=== PATIENT | female | born 1960 | race Caucasian/White ===

== ENCOUNTER 2019-07-17 14:38 | Emergency (ER) | payer OTHER, SELFPAY ==
[2019-07-17 14:49] VITALS: BP 149/92; PULSE 65; RESP 16; TEMP 36.7; O2SAT 99
--- NOTE | 2019-07-17 15:22 | ED.GENADULT ---
HPI - General Adult General Chief complaint: Upper Respiratory Infection Stated complaint: cough/dizzy Time Seen by Provider: 07/17/19 15:22 Source: patient and RN notes reviewed Mode of arrival: ambulatory Limitations: no limitations History of Present Illness HPI narrative: 58-year-old female presents with complaints of dizziness that occurred this a.m. 7 hours ago. Olga said she was eased to the floor by coworkers. Denies losing consciousness or hitting head. Says she went home instead of seeking immediate medical treatment after episode. Denies dizziness at this time. No treatment. Exacerbating factors consist of changing position too fast turning head from side to side too fast. Relieving factors is sitting still. Denies ear pain, ear itching, ear trauma, trauma to head, syncopal episodes, altered vision, altered speech, confusion, or seizure activity. Denies headache, numbness or tingling in extremities. Denies chest pain or dyspnea. Denies URI symptoms, fever, or chills. Tolerating p.o. intake well. Remains active. Some parts of this dictation were generated by voice recognition software and may contain typographical and/or grammatical inaccuracies. Related Data Home Medications Medication Instructions Recorded Confirmed atorvastatin 07/17/19 carvedilol 07/17/19 clonidine HCl 07/17/19 ipratropium-albuterol ml INHALATION 07/17/19 lorazepam 07/17/19 nifedipine PO 07/17/19 paroxetine HCl mg PO 07/17/19 Allergies Allergy/AdvReac Type Severity Reaction Status Date / Time pseudoephedrine Allergy Mild Verified 09/04/15 10:03 Review of Systems Review of Systems: Narrative: CONSTITUTIONAL: Denies fever, chills, sweats. EYES: Denies visual changes, redness, discharge. ENT: Denies rhinorrhea, congestion, sore throat, otalgia. CARDIOVASCULAR: Denies chest pain, palpitations, edema. RESPIRATORY: Denies dyspnea, wheezing, cough. GASTROINTESTINAL: Denies abdominal pain, nausea, vomiting, diarrhea. GENITOURINARY: Denies dysuria, hematuria, abnormal discharge. SKIN: Denies lesions, itching, drainage. MUSCULOSKELETAL: Denies acute back pain, joint pain, or myalgia. NEUROLOGIC: Denies numbness or focal weakness. Complains of dizziness. PSYCHIATRIC: Denies anxiety or depression. All systems reviewed & are unremarkable except as noted in HPI and below. [facility] Past Medical History Medical History (Updated 07/18/19 @ 00:01 by Genaro Timmons) Aneurysm of abdominal aorta 01/14/2019 repaired Anxiety Hypercholesteremia Hypertension Surgical History Surgical History (Updated 07/17/19 @ 15:38 by TYRONE Liu) History of AAA (abdominal aortic aneurysm) repair Hx of appendectomy Family History Family History Mother Asthma Family history of heart disease in male family member before age 55, Onset Age: 66 Patient's mother is Father Family history of arthritis Social History Social History (Updated 07/17/19 @ 15:39 by TYRONE Liu) Smoking status: Light tobacco smoker Second hand tobacco smoke exposure: Yes Smoking end date: 05/08/14 Alcohol intake: never Substance use: never Living arrangements: with family Occupation/Education: occupation Gender identity (if verbalized by the patient): Female Comments At time of signature, agree with nurse past medical, surgical, social, and family history. There is no relevant family history pertinent to the presenting complaint. Exam Narrative: Exam Narrative: GENERAL: This is a well-nourished, well-developed patient, in no apparent distress. Talks in full sentences and ambulates with steady gait without dyspnea. HEAD: normocephalic, atraumatic. EYES: PERRL. Sclera clear/white. Vision is grossly intact. EARS: External ears normal, auditory canals clear and without drainage, TMs normal without perforation. Hearing grossly intact. NOSE:
[2019-07-17 15:31] VITALS: BP 170/91; PULSE 55
--- NOTE | 2019-07-17 15:32 | ECG_ITS ---
Measurements Intervals [place] Rate: 59 P: 74 MS: 223 QRS: -31 QRSD: 89 T: 75 QT: 458 QTc: 454 Interpretive Statements SINUS BRADYCARDIA WITH FIRST DEGREE AV BLOCK LEFT ATRIAL ENLARGEMENT LEFT AXIS DEVIATION CANNOT RULE OUT SEPTAL INFARCT, AGE INDETERMINATE BORDERLINE ST-T WAVE ABNORMALITY- LATERAL LEADS ABNORMAL ECG Electronically Signed On 07-18-2019 13:36:05 CDT by Javon Riggins D.O.
[2019-07-17 15:47] LABS: Glucose Point of Care 81 (65-105)
[2019-07-17 15:48] VITALS: BP 151/91; BP 154/91; PULSE 58; PULSE 66
== END 2019-07-17 16:02 | disposition home or self-care (01) ==
PROVIDERS: Emergency Provider Nurse Practitioner Family; PCP Family Medicine
DX: R55 Syncope and collapse (principal); H81.10 Benign paroxysmal vertigo, unspecified ear; R00.1 Bradycardia, unspecified; I44.0 Atrioventricular block, first degree; F17.200 Nicotine dependence, unspecified, uncomplicated; F41.9 Anxiety disorder, unspecified; E78.00 Pure hypercholesterolemia, unspecified; I10 Essential (primary) hypertension; R94.31 Abnormal electrocardiogram [ECG] [EKG]
CPT/HCPCS: 93005; 99213; G0463

== ENCOUNTER 2024-05-04 12:00 | Emergency (ER) | payer MEDICARE, MEDICAID, SELFPAY ==
--- NOTE | 2024-05-04 12:50 | ED_ITS ---
HPI - URI/Sore Throat General Chief Complaint: Upper Respiratory Infection Stated Complaint: Cough/SOB Time Seen by Provider: 05/04/24 12:50 Source: patient, RN notes reviewed and old records reviewed Mode of arrival: ambulatory Limitations: no limitations History of Present Illness HPI Narrative: Patient with extensive pulmonary history presents with complaints of productive cough and fever for 5 days. She reports that she feels more tired than normal. Has not measured her temperature, but does report chills and sweats consistent with fever. Patient is employed at [employer], multiple sick contacts Related Data Home Medications ?Medication ?Instructions ?Recorded ?Confirmed ?Last Taken ?Type atorvastatin 40 mg tablet 07/17/19 Unknown History carvedilol 12.5 mg tablet 07/17/19 Unknown History clonidine HCl 0.2 mg tablet 07/17/19 Unknown History ipratropium 0.5 mg-albuterol 3 mg ml inhalation 07/17/19 Unknown History (2.5 mg base)/3 mL nebulization soln lorazepam 0.5 mg tablet 07/17/19 Unknown History nifedipine 90 mg tablet,extended PO 07/17/19 Unknown History release 24 hr paroxetine HCl 10 mg tablet mg PO 07/17/19 Unknown History Allergies Allergy/AdvReac Type Severity Reaction Status Date / Time pseudoephedrine Allergy Mild Verified 09/04/15 10:03 Review of Systems Review of Systems: All systems reviewed & are unremarkable except as noted in HPI and below Constitutional: Constitutional: Reports no additional constitutional complaints, Reports chills, Reports excessive sweating, Reports fever(s) and Reports lethargy ENT: Reports system reviewed and no additional complaints, except as documented and Reports nasal congestion Cardiovascular: Cardiovascular: Reports no additional cardiovascular complaints Respiratory: Respiratory: Reports no additional respiratory complaints, Reports chest congestion, Reports cough and Reports excessive phlegm production Gastrointestinal: Gastrointestinal: Reports no additional gastrointestinal complaints [facility] Past Medical History Medical History Hypercholesteremia Anxiety Hypertension Aneurysm of abdominal aorta 01/14/2019 repaired Surgical History Surgical History History of AAA (abdominal aortic aneurysm) repair Hx of appendectomy Family History Family History Mother Asthma Family history of heart disease in male family member before age 55, Onset Age: 66 Patient's mother is Father Family history of arthritis Social History Social History Smoking status: Light tobacco smoker Second hand tobacco smoke exposure: Yes Smoking end date: 05/08/14 Alcohol intake: never Substance use: never Living arrangements: with family Occupation/Education: occupation Gender identity (if verbalized by the patient): Female Comments At the time of my signature, I reviewed and agree with the nursing past medical, surgical, social, and family history. There is no relevant family history pertinent to the patient complaint. Exam Const: General: cooperative, no acute distress, alert and awake Orientation/consciousness: oriented to person, oriented to place and oriented to time HENMT: Head: normal to inspection Mouth: Yes moist mucous membranes Resp: Effort & Inspection: normal respiratory effort and able to speak in complete sentences Auscultation: clear to auscultation bilaterally, crackles on the right in the lower lung [place], no rales, no rhonchi and no wheezes Cardio: Palpation: normal PMI Rate: regular rate Rhythm: regular rhythm Heart sounds: S1 normal heart sound present and S2 normal heart sound present Neuro: General: oriented to person, oriented to place and oriented to time Cranial nerves: Yes CN's II-XII intact bilaterally Psych: Appearance: grossly normal Thought process: Normal thought process present Insight: Good insight present (Psych) Judgement: Good judgement present (Psych) Course Course Level of Care: Express Care Visit Vital Signs Vital signs: Reviewed MDM - URI/Sore Throat MDM Narrative Medical decision making narrative: Negative COVID, negative flu. Symptoms consistent with atypical pneumonia that is prevalent within the community, patient has had multiple sick contacts. Symptoms likely due to atypical pneumonia. She is stable for outpatient treatment, nontoxic appearing. Discharge instructions reviewed with patient, as well as provided in writing per nursing staff. The instructions also include specific and strict return/GO TO THE ER as well as f/u information. All questions have been answered, and the patient deny any further questions with discharge and discharge plan. Some parts of this dictation were generated by voice recognition software and may contain typographical and/or grammatical inaccuracies. Differential Diagnosis Differential diagnosis: Likely upper respiratory infection, otitis media, sinusitis, viral infection, bronchitis and influenza Medical Records Attestation: I reviewed the patient's medical records. Lab Data Attestation: I reviewed the patient's lab results. Labs: Lab Results 05/04/24 Range/Units 13:34 POC Influenza A Ag Negative (Negative) POC Influenza B Ag Negative (Negative) POC SARS CoV-2 Ag Negative (Negative) Discharge Plan Discharge Clinical Impression: Atypical pneumonia Patient Disposition: Home, Self-Care Condition: Stable Instructions: Antibiotic Form, Community Acquired Pneumonia (ED) Additional Instructions: Take medications as prescribed. Follow with primary care provider. Emergency department for new or worse symptoms Patient Language: Armenian Prescriptions: New azithromycin 250 mg tablet See Rx Instructions .ROUTE .COMPLEX Qty: 6 0RF Rx Instructions: For 250 mg dose pack: take 500 mg today (day 1), then 250 mg for 4 days (days 2-5) albuterol sulfate [Ventolin HFA] 90 mcg/actuation HFA aerosol inhaler 2 puff inhalation QID PRN (Reason: shortness of breath or wheezing) Qty: 8.5 0RF No Action atorvastatin 40 mg tablet paroxetine HCl 10 mg tablet PO carvedilol 12.5 mg tablet ipratropium-albuterol 0.5 mg-3 mg(2.5 mg base)/3 mL solution for nebulization INHALATION clonidine HCl 0.2 mg tablet lorazepam 0.5 mg tablet nifedipine 90 mg tablet extended release 24hr PO Follow-up/Referrals: Edwin,Blaise Hancock MD [Primary Care Provider] - 2 Weeks Stand Alone Forms: Work/School Release IP
[2024-05-04 13:15] VITALS: BP 108/74; PULSE 68; RESP 16; TEMP 35.6; O2SAT 98
[2024-05-04 13:36] LABS: EDCOVIDSCREEN Negative (Negative); EDINFLUASCREEN Negative (Negative); EDINFLUBSCREEN Negative (Negative)
== END 2024-05-04 14:00 | disposition home or self-care (01) ==
PROVIDERS: Emergency Provider Nurse Practitioner Family; PCP Family Medicine
DX: J18.9 Pneumonia, unspecified organism (principal); Z20.822 Contact with and (suspected) exposure to COVID-19; I10 Essential (primary) hypertension; E78.00 Pure hypercholesterolemia, unspecified; Z87.891 Personal history of nicotine dependence
CPT/HCPCS: 87426; 87804; 99213; G0463